=== PATIENT | female | born 1945 | race Caucasian/White ===

== ENCOUNTER 2016-06-07 02:12 | Emergency (ER) | payer MEDICARE ==
--- NOTE | 2016-06-07 02:49 | ED ---
General Adult HPI - General Source: patient, police, RN notes reviewed Mode of arrival: ambulatory Limitations: no limitations <Corbin Celis - Last Filed: 06/07/16 05:13> <Juan Alberto Mabry - Last Filed: 06/07/16 16:35> - General Chief complaint: Psychiatric Symptoms Stated complaint: Mental Health Time Seen by Provider: 06/07/16 02:20 - History of Present Illness Initial comments: This is a 70-year-old female presents to the emergency room after having been seen [place] by the emergency room physician and then [place] in the [facility]. Patient was initially seen at a hotel that she had rented because she was found down stairs in the lobby and outside with nothing was initially down. Patient states that was because she got out of the shower and someone was trying to kill her with fumes in the bedroom so she took the dog and ran outside half naked. Patient states she eventually get someone to go into the hotel room get her" and she got dressed. [place] was trying to kill her. Patient states the border patrol made her go to the emergency room and [place]. Patient states that eventually discharged her and she came back here where she was met by the [place] police and brought into the emergency department. Patient states she's but her is not really her even though he looks like her . Patient states she doesn't know what happened to her but the guidance there looks exactly like him but it's not him. Patient states she was in some sort of virtual reality or everything keeps changing and changing and she just gets used all the changes. Patient denies any physical complaints today. Patient denies headache patient denies numbness weakness. Patient denies any chest pain palpitations difficulty breathing or shortness of breath. Patient denies abdominal pain patient denies nausea vomiting diarrhea patient denies any fevers or chills ( Corbin Celis) - Related Data Home Medications Medication Instructions Recorded Confirmed Albuterol Inhaler [Ventolin Hfa 1 puff INHALATION RT-Q6H PRN 06/07/16 06/07/16 Inhaler] Escitalopram [Lexapro] 20 mg PO DAILY 06/07/16 06/07/16 Triamterene-Hctz 37.5-25Mg 1 cap PO DAILY 06/07/16 06/07/16 [Dyazide 37.5-25 Capsule] Allergies Allergy/AdvReac Type Severity Reaction Status Date / Time iodine Allergy Unknown Verified 06/07/16 10:59 Review of Systems ROS Other: All systems not noted in ROS Statement are negative. <Corbin Celis - Last Filed: 06/07/16 05:13> ROS Other: All systems not noted in ROS Statement are negative. <Juan Alberto Mabry - Last Filed: 06/07/16 16:35> ROS Statement: Those systems with pertinent positive or pertinent negative responses have been documented in the HPI. Past Medical History Past Medical History: Asthma, Chest Pain / Angina History of Any Multi-Drug Resistant Organisms: None Reported Past Surgical History: Unable to Obtain Past Psychological History: Anxiety, Depression Smoking Status: Never smoker Past Alcohol Use History: None Reported Past Drug Use History: None Reported <Corbin Celis - Last Filed: 06/07/16 05:13> General Exam Limitations: no limitations <Corbin Celis - Last Filed: 06/07/16 05:13> <Juan Alberto Mabry - Last Filed: 06/07/16 16:35> - General Exam Comments Initial Comments: GENERAL: Patient is well-developed and well-nourished. Patient is nontoxic and well- hydrated and is in no acute distress. ENT: Neck is soft and supple. No significant lymphadenopathy is noted. Oropharynx is clear. Moist mucous membranes. Neck has full range of motion without eliciting any pain. EYES: The sclera were anicteric and conjunctiva were pink and moist. Extraocular movements were intact and pupils were equal round and reactive to light. Eyelids were unremarkable. PULMONARY: Unlabored respirations. Good breath sounds bilaterally. No audible rales rhonchi or wheezing was noted. CARDIOVASCULAR: There is a regular rate and rhythm without any murmurs gallops or rubs. ABDOMEN: Soft and nontender with normal bowel sounds. SKIN: Skin is clear with no lesions or rashes and otherwise unremarkable. NEUROLOGIC: Patient is alert and oriented x3. Cranial nerves II through XII are grossly intact. Motor and sensory are also intact. Normal speech, volume and content. Symmetrical smile. MUSCULOSKELETAL: Normal extremities with adequate strength and full range of motion. LYMPHATICS: No significant lymphadenopathy is noted PSYCHIATRIC: Patient is delusional. Patient thinks someone is trying to kill her with fumes in a hotel that she just checked into. Patient also thinks there is someone who looks exactly like her at her house but she does not believe it is her . Patient also states that she was in a virtual reality and everything around her keeps changing and over the years she's just got used to other changes. (Corbin Celis) Course <Corbin Celis - Last Filed: 06/07/16 05:13> <Juan Alberto Mabry - Last Filed: 06/07/16 16:35> Vital Signs 06/07/16 06/07/16 02:16 07:07 Temperature 98.6 F Pulse Rate 89 67 Respiratory 20 18 Rate Blood Pressure 133/82 151/78 O2 Sat by Pulse 96 97 Oximetry - Reevaluation(s) Reevaluation #1: 06/07/16 16:35 The patient has been resting comfortably throughout the day. She is pending transfer. (Juan Alberto Mabry) Medical Decision Making - Lab Data Result diagrams: 06/07/16 02:50 06/07/16 02:50 <Corbin Celis - Last Filed: 06/07/16 05:13> - Lab Data Result diagrams: 06/07/16 02:50 06/07/16 02:50 <Juan Alberto aMbry - Last Filed: 06/07/16 16:35> - Medical Decision Making EKG shows a normal sinus rhythm at 85 bpm PA interval 166 QRS is 90 QT interval 390 QTC is 464. Patient's EKG shows no ST segment elevation or depression or T- wave abdomen is noted. (Corbin Celis) - Lab Data Lab Results 06/07/16 06/07/16 06/07/16 Range/Units 02:50 02:50 03:50 WBC 14.9 H (3.8-10.6) k/uL RBC 4.75 (3.80-5.40) m/uL Hgb 14.5 (11.4-16.0) gm/dL Hct 42.9 (34.0-46.0) % MCV 90.4 (80.0-100.0) fL MCH 30.6 (25.0-35.0) pg MCHC 33.8 (31.0-37.0) g/dL RDW 14.0 (11.5-15.5) % Plt Count 383 (150-450) k/uL Neutrophils % 74 % Lymphocytes % 17 % Monocytes % 6 % Eosinophils % 1 % Basophils % 0 % Neutrophils # 11.0 H (1.3-7.7) k/uL Lymphocytes # 2.6 (1.0-4.8) k/uL Monocytes # 0.8 (0-1.0) k/uL Eosinophils # 0.2 (0-0.7) k/uL Basophils # 0.1 (0-0.2) k/uL Sodium 142 (137-145) mmol/L Potassium 4.0 (3.5-5.1) mmol/L Chloride 104 (98-107) mmol/L Carbon Dioxide 27 (22-30) mmol/L Anion Gap 11 mmol/L BUN 25 H (7-17) mg/dL Creatinine 0.90 (0.52-1.04) mg/dL Est GFR (MDRD) Af Amer >60 (>60 ml/min/1.73 sqM) Est GFR (MDRD) Non-Af >60 (>60 ml/min/1.73 sqM) Glucose 123 H (74-99) mg/dL Calcium 9.4 (8.4-10.2) mg/dL Total Bilirubin 0.6 (0.2-1.3) mg/dL AST 31 (14-36) U/L ALT 36 (9-52) U/L Alkaline Phosphatase 87 (38-126) U/L Total Protein 7.8 (6.3-8.2) g/dL Albumin 4.3 (3.5-5.0) g/dL Urine Color Yellow Urine Appearance Clear (Clear) Urine pH 5.0 (5.0-8.0) Ur Specific Elim 1.016 (1.001-1.035) Urine Protein Trace H (Negative) Urine Glucose (UA) Negative (Negative) Urine Ketones Negative (Negative) Urine Blood Negative (Negative) Urine Nitrite Negative (Negative) Urine Bilirubin Negative (Negative) Urine Urobilinogen <2.0 (<2.0) mg/dL Ur Leukocyte Esterase Negative (Negative) Urine Opiates Screen Not Detected (NotDetected) Ur Oxycodone Screen Not Detected (NotDetected) Urine Methadone Screen Not Detected (NotDetected) Ur Propoxyphene Screen Not Detected (NotDetected) Ur Barbiturates Screen Not Detected (NotDetected) U Tricyclic Antidepress Not Detected (NotDetected) Ur Phencyclidine Scrn Not Detected (NotDetected) Ur Amphetamines Screen Not Detected (NotDetected) U Methamphetamines Scrn Not Detected (NotDetected) U Benzodiazepines Scrn Not Detected (NotDetected) Urine Cocaine Screen Not Detected (NotDetected) U Marijuana (THC) Screen Not Detected (NotDetected) Disposition Time of Disposition: 05:13 <Corbin Celis - Last Filed: 06/07/16 05:13> <Juan Alberto Mabry - Last Filed: 06/07/16 16:35> Clinical Impression: Psychosis Disposition: TRANSFER TO PSYCH HOSP/UNIT Referrals: Nonstaff,Physician [Primary Care Provider] - 1-2 days
[2016-06-07 03:18] LABS: ALT 36 U/L (9-52); AST 31 U/L (14-36); Alkaline Phosphatase 87 U/L (38-126); Anion Gap 11 mmol/L; Basophils # (A) 0.1 k/uL (0-0.2); Basophils % (A) 0 %; Blood Urea Nitrogen 25 mg/dL (7-17); CH 30.9; CHCM 34.4; Calcium 9.4 mg/dL (8.4-10.2); Carbon Dioxide 27 mmol/L (22-30); Chloride 104 mmol/L (98-107); Eosinophils # (A) 0.2 k/uL (0-0.7); Eosinophils % (A) 1 %; Glucose 123 mg/dL (74-99); HCT 42.9 % (34.0-46.0); HDW 2.92; HGB 14.5 gm/dL (11.4-16.0); Luc # (Auto) 0.29; Luc % (Auto) 2; Lymphocytes # (A) 2.6 k/uL (1.0-4.8); Lymphocytes % (A) 17 %; MCH 30.6 pg (25.0-35.0); MCHC 33.8 g/dL (31.0-37.0); MCV 90.4 fL (80.0-100.0); Mean Platelet Volume 6.4; Monocytes # (A) 0.8 k/uL (0-1.0); Monocytes % (A) 6 %; Neutrophils % (A) 74 %; Non-African American GFR(MDRD) >60 (>60 ml/min/1.73 sqM); RBC 4.75 m/uL (3.80-5.40); Sodium 142 mmol/L (137-145); Total Bilirubin 0.6 mg/dL (0.2-1.3); Total Protein 7.8 g/dL (6.3-8.2); WBC 14.9 k/uL (3.8-10.6); WBC (Perox) 14.26
[2016-06-07 04:02] LABS: Appearance,Urine Clear (Clear); Bilirubin,Urine Negative (Negative); Glucose,Urine (UA) Negative (Negative); Ketones,Urine Negative (Negative); Leukocyte Esterase,Urine Negative (Negative); Nitrite,Urine Negative (Negative); Protein,Urine Trace (Negative); Specific Gravity,Urine 1.016 (1.001-1.035); UA Billing (MACRO vs. MICRO) CHEM; Urobilinogen,Urine <2.0 mg/dL (<2.0)
--- NOTE | 2016-06-07 04:29 | CT ---
EXAM: CT head without intravenous contrast. HISTORY: Pain. COMPARISON: None provided. TECHNIQUE: Continuous axial images of the head were obtained without intravenous contrast. Soft tissue and bone algorithms were applied. Coronal and sagittal reformatting was provided. FINDINGS: No intracranial hemorrhage or mass effect. Ventricular system and sulci are symmetric. Skull, orbits, and paranasal sinuses show no substantial abnormality. IMPRESSION: No intracranial hemorrhage or mass effect. If occult infarct or ischemia is of high clinical concern, MRI is the modality of choice. CTDI vol = 57.40 mGy DLP = 1064.30 mGycm One or more of the following dose reduction techniques were used: automated exposure control, adjustment of the mA and/or kV according to patient size, use of iterative reconstruction technique.
[2016-06-07 07:08] VITALS: RESP 18
[2016-06-07] MEDS ORDERED: LORazepam 1 MG TAB PO STA (15:14)
[2016-06-07] MEDS ORDERED: TRIAMTERENE-HCTZ 37.5-25MG 1 EACH CAP PO ONE (15:16)
[2016-06-08 00:57] VITALS: BP 144/63; PULSE 83; TEMP 98
== END 2016-06-08 01:15 ==
LOC: EC 02:12
DX: F29 Unspecified psychosis not due to a substance or known physiological condition (principal); Z79.899 Other long term (current) drug therapy; Z91.041 Radiographic dye allergy status
CPT/HCPCS: 36415; 70450; 80053; 80306; 81003; 82075; 85025; 99285